=== PATIENT | female | born 1940 | race Caucasian/White ===

== ENCOUNTER 2018-08-15 16:31 | Inpatient (IN) | payer MEDICARE, OTHER ==
[~2018-08-15] VITALS: Ht 157.5 cm; Wt 92.4 kg
[~2018-08-15 16:31] MED LIST: Aspir 8181 MG PO; CARV3.125 PO; LEVSOD100 PO; Omeprazole20 M1 PO; SIMV10 PO; VALS80 PO
[2018-08-15] MEDS ORDERED: Crestor20 MG PO (17:02)
[2018-08-15] MEDS ORDERED: LOSA50 PO (17:02)
[2018-08-15 17:07] LABS: BASOPHILS ABSOLUTE AUTO 0.05 K/mm3 (0.00-0.23); BASOPHILS PERCENT AUTO 1 % (0-2); EOSINOPHILS ABSOLUTE AUTO 0.32 K/mm3 (0.00-0.68); EOSINOPHILS PERCENT AUTO 4 % (0-6); Hematocrit 27.5 % (33.0-51.0); Hemoglobin 8.3 g/dL (11.5-16.0); IMMATURE GRAN ABSOLUTE AUTO 0.02 K/mm3 (0.00-0.10); IMMATURE GRAN PERCENT AUTO 0 % (0-1); LYMPHOCYTES ABSOLUTE AUTO 2.87 K/mm3 (0.84-5.20); LYMPHOCYTES PERCENT AUTO 34 % (21-46); MONOCYTES ABSOLUTE AUTO 0.67 K/mm3 (0.16-1.47); MONOCYTES PERCENT AUTO 8 % (4-13); Mean Corpuscular HGB 29.4 pg (26.0-34.0); Mean Corpuscular HGB Conc 30.2 g/dL (31.5-36.5); Mean Corpuscular Volume 98 fL (80-100); Mean Platelet Volume 10.9 fL (9.1-12.4); NEUTROPHILS ABSOLUTE AUTO 4.62 K/mm3 (1.96-9.15); NEUTROPHILS PERCENT AUTO 54 % (41-73); Platelet Count 255 K/mm3 (150-400); RDW Coefficient Variation 13.9 % (11.7-14.2); RDW Standard Deviation 49.7 fL (35.1-46.3); Red Blood Cell Count 2.82 M/mm3 (3.80-5.20); White Blood Cell Count 8.55 K/mm3 (4.00-11.30)
[2018-08-15 17:21] LABS: Troponin I 0.11 ng/mL (0.000-0.040)
[2018-08-15 17:34] LABS: Albumin/Globulin Ratio 0.7 (0.8-1.8); Bilirubin, Total 0.2 mg/dL (0.1-1.0); Bun/Creatinine Ratio 17.7 (12.0-20.0); Calcium, Blood 8.8 mg/dL (8.5-10.1); Creatinine, Blood 0.96 mg/dL (0.40-1.00); Globulin, Blood 4.1 g/dL (2.2-4.0); Potassium, Blood 3.7 mmol/L (3.5-5.5); Total Protein, Blood 7.1 g/dL (6.4-8.2)
[2018-08-15 20:49] LABS: IMMATURE RETIC FRACTION 23.9 % (2.3-16.0); RETIC HGB EQUIVALENT 31.4 pg (28.20-36.60); RETICULOCYTE ABSOLUTE 0.1106 M/mm3 (0.0200-0.1100); RETICULOCYTE COUNT PERCENT 4.19 % (0.50-2.50)
[2018-08-15 20:55] LABS: Hemoglobin 7.9 g/dL (11.5-16.0)
[2018-08-15 21:06] LABS: Troponin I 0.129 ng/mL (0.000-0.040)
[2018-08-15 22:29] LABS: International Normalized Ratio 1.01; Prothrombin Time Results 10.4 Sec (9.7-11.5)
[2018-08-15 23:09] LABS: Percent Saturation 15.1 % (15.0-50.0)
--- NOTE | 2018-08-16 02:30 | NUR ---
CANCELLED H&H UNABLE TO DRAW H&H AT THIS TIME CANNOT BE DRAWN WHILE BLOOD IS TRANSFUSING. ORDER READ TO RUN BLOOD SLOW POSSIBLE. STARTED AT 2330, WILL RUN UNTIL 0330 AND THEN WILL RUN FLUSH. H&H CANCELED AM LABS WILL BE DRAWN AT AROUND 0430.
--- NOTE | 2018-08-16 03:58 | NUR ---
SHIFT SUMMARY PT ADMITTED FOR ANEMIA. DNR. REGULAR DIET. TELE-NSR AT A RATE OF 79 PER OBSTETRICS AND GYNECOLOGY PROFESSOR. LOVENOX FOR DVT PROPHYLAXIS. PT REPORTED TO PREVIOUSLY BE ON 2L OF O2 VIA NC ONLY AT NIGHT PRIOR TO ABOUT 2 WEEKS AGO WHEN SHE BEGAN NEEDING TO WEAR CONTINUOUSLY. PT NOTED OT HAVE INCREASED TOPONIN OF 0.110, AND 0.129. PT ALSO NOTED TO HAVE EKG CHANGES THAT NOW INCLUDE A BBB THAT WAS NOT THERE A FEW MONTHS PRIOR ACCORDING TO REPORT AND A MURMUR THAT IS FOLLOWED AND SUPPOSED TO BE FIXED IN [place]. THE PT IS A 1 PERSON ASSIST WITH TRANSFERS TO THE BS. DO NOT RECCOMEND AMBULATION EVEN IN ROOM OR TO THE BATHROOM DUE TO SEVER SOB WITH ACTIVITY THAT TAKES THE PT APPROXIMATELY 10-15 MINUTES TO RECOVER FROM EVEN WHEN ONLY TRANSFERING TO THE BS. PT ALSO REPORTS FEELING A BIT LIGHT HEADED WITH ACTIVITY. 20 G IV TO THE R FA. PT RECIEVED 1 UNTI PRBCS SO FAR THIS SHIFT THAT RECENTLY COMPLETED WITH NO APPARENT ADVERSE REACTIONS. THE PT PRESENTED TO THE ED WITH PROGRESSIVE SOB FOR THE PAST 2 WEEKS. PT HAS A HISTORY OF SEVEE AORTIC STENOSIS AND IS AWAITING EVALUATION IN [place]. HISORY OF ANEMIA IN THE PAST HAS AN UNCLEAR CAUSE BUT PT DID REQUIRE A TRANSFUSION AT THAT TIME. PER REPORT THE PTS SOB IS LIKELY SECONDARY TO AN EXACERBATION OF ANEMIA. THE PT IS ALERT, ORIENTED, PLEASENT AND COOPERATIVE. SHE IS A BIT AUGUSTINE. PT HAS NOT BEEN ABLE TO REST MUCH SINCE ADMISSION OR PRIOR DUE TO INTERRUPTIONS FOR CARE. PT DOES APPEAR TO BE SLEEPING COMFORTABLY AT THIS TIME WITH NO APPARENT SIGNS OF ACUTE DISTRESS. ABLE TO MAKE NEEDS KNOWN AND CALL LIGHT IN REACH.
[2018-08-16 05:13] LABS: Hematocrit 25.1 % (33.0-51.0); Hemoglobin 7.8 g/dL (11.5-16.0); Mean Corpuscular HGB 29.5 pg (26.0-34.0); Mean Corpuscular HGB Conc 31.1 g/dL (31.5-36.5); Platelet Count 209 K/mm3 (150-400); RDW Coefficient Variation 15.1 % (11.7-14.2); RDW Standard Deviation 51.8 fL (35.1-46.3); Red Blood Cell Count 2.64 M/mm3 (3.80-5.20); White Blood Cell Count 8.31 K/mm3 (4.00-11.30)
[2018-08-16 05:23] LABS: Mean Corpuscular Volume 95 fL (80-100)
[2018-08-16 05:32] LABS: Troponin I 0.075 ng/mL (0.000-0.040)
[2018-08-16 05:41] LABS: Albumin, Blood 2.6 g/dL (3.4-5.0); Albumin/Globulin Ratio 0.8 (0.8-1.8); Bilirubin, Total 0.5 mg/dL (0.1-1.0); Bun/Creatinine Ratio 17.5 (12.0-20.0); Calcium, Blood 8.9 mg/dL (8.5-10.1); Creatinine, Blood 0.97 mg/dL (0.40-1.00); Globulin, Blood 3.3 g/dL (2.2-4.0); Potassium, Blood 3.8 mmol/L (3.5-5.5); Total Protein, Blood 5.9 g/dL (6.4-8.2)
--- NOTE | 2018-08-16 07:56 | NUR ---
ASSUMED CARE OF PT- BEDSIDE REPORT COMPLETE WITH NIGHT RN BEENA. PT HAS NO C/O PAIN, SOB EXACERBATED WITH AMBULATION; PER REPORT PT TOOK 15 MIN TO RECOVER FROM A TRIP TO THE BATHROOM, RECOMENDED BSC FOR THE TIME BEING. PT RECIEVED TRANSFUSION OF 1 UNIT OF PRBC'S H&H WENT DOWN. WILL CONTACT DR SHORTLY. PT HAS AUDIBLE MURMER THAT IS BEING MONITORED BY DR IN [place]. PT EKG SHOWS A BBB, THIS WAS NOT PRESENT ON PREVIOUS EKG PER REPORT FROM NIGHT RN.
[2018-08-16 08:53] LABS: Hematocrit 27.8 % (33.0-51.0); Hemoglobin 8.7 g/dL (11.5-16.0)
[2018-08-16] MEDS ORDERED: ASPI81CH PO (10:27)
[2018-08-16] MEDS ORDERED: IRON18 MG PO (10:31)
[2018-08-16] MEDS ORDERED: CALCIUM + D SO1 EACH PO (10:32)
[2018-08-16] MEDS ORDERED: B Complex #11 EACH PO (10:32)
[2018-08-16] MEDS ORDERED: MIRALAX17 GM PO (10:35)
[2018-08-16] MEDS ORDERED: ACET500 PO (10:35)
[2018-08-16 14:47] LABS: Hematocrit 26.6 % (33.0-51.0); Hemoglobin 8.4 g/dL (11.5-16.0)
--- NOTE | 2018-08-16 19:34 | NUR ---
SHIFT SUMMARY- PT HGB IS BEING CLOSELY MONITORED, IF SHE IS STABLE IN THE MORNINGSHE MAY BE ABLE TO GO HOME AND FOLLOW UP WITH GI, SHE HAS AN APPOINTMENT SCHEDULED FOR 08-30-18 PER DAUGHTER. IF PT HGB IS STILL UNSTABLE AND SHE REQUIRES ANOTHER TRANSFUSION SHE WILL NEED TO SEE GI DOCTOR PRIOR TO DISCHARGE. PT CURRENTLY IN BED WITH HER CALL LIGHT IN REACH, NO C/O PAIN OR EVIDENCE OF BLEEDING AT THIS TIME.
--- NOTE | 2018-08-17 06:49 | NUR ---
08/17/18 0630 AWAKENED FOR AM MEDS. DENIES ANY S/S OR DISCOMFORT. VITALS STABLE. UNEVENTFUL NIGHT.
--- NOTE | 2018-08-17 07:11 | NUR ---
ASSUMED CARE OF PT- RECIEVED REPORT FROM NIGHT ELIN SHELLEY. NO MORNING H&H DRAWN, PUT IN STAT ORDER AFTER SPEAKING WITH DR ZAYAS, NO OTHER LABS NEEDED AT THIS TIME PER
[2018-08-17 07:31] LABS: Hematocrit 26.5 % (33.0-51.0); Hemoglobin 8.2 g/dL (11.5-16.0)
--- NOTE | 2018-08-17 14:48 | NUR ---
Brief PC visit with pt. Pt is being transferred to [place] for GI services. Transportation company to be here at any time. Pt's daughter and son in law are in route to [place] now and will meet her there when she arrives. She has no complaints at this time except that she is very tired. Will allow her to rest as she is to be transferred at anytime.
--- NOTE | 2018-08-17 17:12 | NUR ---
PT TRANSFERED TO HIGHER LEVEL OF CARE- CALLED ELIN STANFORD AT [facility] AND GAVE FULL REPORT OF PT MEDICAL Hx AND CURRENT ACUTE ISSUE. PT WAS TAKEN BY [facility], PT ALERT AND ORIENTED NO S&S OF DISTRESS AT THE TIME OF DISCHARGE.
== END 2018-08-17 15:11 | disposition short-term general hospital (02) | DRG 811 ==
LOC: ER 16:31 → MEDS 16:32 → ER 16:32 → MEDS 16:32 → ENPENDDIS 08-17 12:00 → MEDS 08-17 15:11
PROVIDERS: Emergency Medicine; Internal Medicine; ADMIT Internal Medicine
PROC: 30233N1 Transfusion of Nonautologous Red Blood Cells into Peripheral Vein, Percutaneous Approach (ICD-10-PCS; principal; 2018-08-15)
DX: D64.9 Anemia, unspecified (principal); J96.01 Acute respiratory failure with hypoxia; I50.32 Chronic diastolic (congestive) heart failure; I13.0 Hypertensive heart and chronic kidney disease with heart failure and stage 1 through stage 4 chronic kidney disease, or unspecified chronic kidney disease; I35.0 Nonrheumatic aortic (valve) stenosis; N18.1 Chronic kidney disease, stage 1; Z66 Do not resuscitate; Z88.5 Allergy status to narcotic agent; Z88.8 Allergy status to other drugs, medicaments and biological substances; Z91.048 Other nonmedicinal substance allergy status; Z79.899 Other long term (current) drug therapy; Z86.73 Personal history of transient ischemic attack (TIA), and cerebral infarction without residual deficits
CPT/HCPCS: 36415; 36430; 71046; 80053; 82550; 82728; 83010; 83540; 83550; 83615; 83880; 84484; 85014; 85018; 85025; 85027; 85045; 85610; 86850; 86900; 86901; 86923; 93005; 93010; 99285-25; J1940; P9016